=== PATIENT | male | born 1935 | race Caucasian/White ===

== ENCOUNTER 2024-05-20 11:06 | Inpatient (IN) ==
[2024-05-20] MEDS ORDERED: IOPAMIDOL 100 ML BOTTLE IV ONE (11:07)
[2024-05-20] MEDS: IPRATROPIUM/ALBUTEROL 3 ML AMPUL.NEB NEB ONE (11:15)
[2024-05-20] MEDS: 0.9 % SODIUM CHLORIDE 1,000 ML IV ONE (11:21)
[2024-05-20] MEDS: ACETAMINOPHEN 1,000 MG/100 ML BAG IV ONE (11:21)
[2024-05-20] MEDS: AZITHROMYCIN 500 MG in DEXTROSE 5% IN WATER 250 ML IV ONE (11:44)
[2024-05-20 12:05] LABS: Blood Urea Nitrogen 16 mg/dL (8-23); Calcium 8.7 mg/dL (8.6-10.4); Carbon Dioxide 21 mmol/L (22-30); Chloride 100 mmol/L (96-108); Glomerular Filtration Rate 54; Glucose 159 mg/dL (70-105); Sodium 136 mmol/L (133-145)
[2024-05-20 13:22] LABS: ABG Methemoglobin 0.2 % (0.4-1.5); Total Hemoglobin 14.9 gm/Dl (13.5-16.5); VBG Base Excess -3 (-2-3); VBG HCO3 19.6 mmol/L (24.0-28.0); VBG Oxygen Saturation 92.7 % (40.0-70.0); VBG PH 7.43 U (7.32-7.42); VBG PO2 147.4 mmHg (25.0-40.0); VBG Total CO2 20.6 mmol/L (25.0-29.0)
[2024-05-20 13:48] LABS: Basophils # (Auto) 0.02 K/mcL (0.00-0.30); Basophils % (Auto) 0.2 % (0.0-2.0); Eosinophils # (Auto) 0 K/mcL (0.00-0.70); Eosinophils % (Auto) 0 % (0.0-7.0); Hematocrit 46.6 % (40.1-51.0); Hemoglobin 15.5 g/dL (13.7-17.5); Lymphocytes # (Auto) 1.79 K/mcL (1.50-4.80); Lymphocytes % (Auto) 14.6 % (15.5-49.0); Mean Cell Volume 96.1 fL (80.0-100.0); Mean Corpuscular HGB Conc 33.3 g/dL (31.0-36.0); Mean Platelet Volume 10.5 fL (8.8-12.5); Monocytes # (Auto) 1.04 K/mcL (0.10-0.90); Monocytes % (Auto) 8.5 % (1.0-12.0); Neutrophils % (Auto) 76.5 % (38.0-78.0); Platelet Count 178 K/mcL (140-440); RBC 4.85 M/mcL (4.63-6.08); Red Cell Distribution Width 12.3 % (11.5-14.5); WBC 12.2 K/mcL (4.5-11.0)
[2024-05-20 17:35] LABS: C-Reactive Protein 2.16 mg/dL (0.03-0.80)
[2024-05-20] MEDS: 0.9 % SODIUM CHLORIDE 10 ML SYRINGE IV SCH ×3 (20:10→22:03)
[2024-05-20] MEDS: ENOXAPARIN 100 MG/ML SYRINGE SQ SCH (20:19)
[2024-05-20] MEDS ORDERED: LORazepam 2 MG/ML VIAL IV PRN (21:11)
[2024-05-20] MEDS ORDERED: ONDANSETRON 4 MG/2 ML VIAL IV PRN (21:11)
[2024-05-20] MEDS ORDERED: POLYETHYLENE GLYCOL 3350 17 GM PACKET PO PRN (21:11)
[2024-05-20] MEDS: IPRATROPIUM/ALBUTEROL 3 ML AMPUL.NEB NEB SCH (21:39)
[2024-05-20] MEDS: FUROSEMIDE 40 MG/4 ML VIAL IV ONE (21:58)
[2024-05-20] MEDS: DOXYCYCLINE 100 MG in DEXTROSE 5% IN WATER 100 ML IV SCH (22:02)
[2024-05-20] MEDS: THIAMINE 200 MG in 0.9 % SODIUM CHLORIDE 50 ML IV ONE (23:05)
[2024-05-21 01:00] LABS: Alcohol, Urine None Detected; Amphetamine Screen,Urine None detected; Barbiturate Screen,Urine None detected; Benzodiazepines Screen,Urine None detected; Cannabinoid Screen,Urine None detected; Cocaine Screen,Urine None detected; Fentanyl, Urine Screen None Detected; Opiate Screen,Urine None detected; Oxycodone, Urine Screen None detected; Phencyclidine Screen,Urine None detected
[2024-05-21 06:42] LABS: Basophils # (Auto) 0.02 K/mcL (0.00-0.30); Basophils % (Auto) 0.2 % (0.0-2.0); Eosinophils # (Auto) 0 K/mcL (0.00-0.70); Eosinophils % (Auto) 0 % (0.0-7.0); Hematocrit 39.7 % (40.1-51.0); Hemoglobin 13.6 g/dL (13.7-17.5); Lymphocytes % (Auto) 14.1 % (15.5-49.0); Mean Cell Volume 94.7 fL (80.0-100.0); Mean Corpuscular HGB Conc 34.3 g/dL (31.0-36.0); Mean Platelet Volume 10.2 fL (8.8-12.5); Monocytes # (Auto) 0.99 K/mcL (0.10-0.90); Monocytes % (Auto) 8.7 % (1.0-12.0); Neutrophils % (Auto) 76.9 % (38.0-78.0); Platelet Count 141 K/mcL (140-440); RBC 4.19 M/mcL (4.63-6.08); Red Cell Distribution Width 12.4 % (11.5-14.5); WBC 11.3 K/mcL (4.5-11.0)
[2024-05-21 07:03] LABS: ALT/SGPT 12 U/L (<40); AST/SGOT 25 U/L (<40); Albumin 3.6 gm/dL (3.2-5.2); Albumin/Globulin Ratio 1.4 (1.0-2.3); Alkaline Phosphatase 48 U/L (39-117); Bilirubin,Direct 0.2 mg/dL (<0.3); Bilirubin,Total 0.6 mg/dL (0.1-1.0); Blood Urea Nitrogen 19 mg/dL (8-23); Calcium 8.5 mg/dL (8.6-10.4); Carbon Dioxide 25 mmol/L (22-30); Chloride 102 mmol/L (96-108); Globulin 2.5 gm/dL (2.2-3.7); Glomerular Filtration Rate 49; Glucose 128 mg/dL (70-105); Lactate Dehydrogenase 184 U/L (135-225); Phosphorous 2.8 mg/dL (2.5-4.5); Potassium 3.4 mmol/L (3.3-5.1); Sodium 140 mmol/L (133-145); Triglycerides 91 mg/dL (<150); Uric Acid 6.1 mg/dL (2.5-8.0)
[2024-05-21] MEDS: LISINOPRIL 10 MG TABLET PO SCH (08:14)
[2024-05-21] MEDS: VITAMIN D3 25 MCG TABLET PO SCH (08:15)
[2024-05-21] MEDS: FINASTERIDE 5 MG TABLET PO SCH (08:15)
[2024-05-21] MEDS: amLODIPine 10 MG TABLET PO SCH (08:15)
[2024-05-21] MEDS: ASPIRIN 81 MG TAB.CHEW PO SCH (08:15)
[2024-05-21] MEDS ORDERED: cefTRIAXone 1 GM VIAL IV SCH (09:00)
[2024-05-21] MEDS ORDERED: COENZYME Q10 100 MG PO SCH (09:00)
[2024-05-21] MEDS: cefTRIAXone 2 GM in DEXTROSE 5% IN WATER 50 ML IV SCH (09:46)
[2024-05-21] MEDS: LACTATED RINGERS 1,000 ML IV SCH ×2 (11:22→12:29)
[2024-05-21] MEDS: THIAMINE 100 MG in 0.9 % SODIUM CHLORIDE 50 ML IV SCH (11:22)
[2024-05-21] MEDS: POTASSIUM CHLORIDE 20 MEQ PACKET PO ONE (11:34)
[2024-05-21] MEDS: IPRATROPIUM/ALBUTEROL 3 ML AMPUL.NEB NEB SCH (19:03)
[2024-05-21] MEDS: ACETAMINOPHEN 325 MG TABLET PO PRN (19:35)
[2024-05-21] MEDS: IPRATROPIUM/ALBUTEROL 3 ML AMPUL.NEB NEB ONE (20:09)
[2024-05-21] MEDS: SENNOSIDES 1 TABLET PO PRN (20:34)
[2024-05-21] MEDS: ATORVASTATIN 40 MG TABLET PO SCH (20:34)
[2024-05-22 06:31] LABS: Basophils # (Auto) 0.02 K/mcL (0.00-0.30); Basophils % (Auto) 0.2 % (0.0-2.0); Eosinophils # (Auto) 0.08 K/mcL (0.00-0.70); Eosinophils % (Auto) 0.8 % (0.0-7.0); Hematocrit 39.7 % (40.1-51.0); Hemoglobin 13.7 g/dL (13.7-17.5); Lymphocytes # (Auto) 1.04 K/mcL (1.50-4.80); Lymphocytes % (Auto) 10.7 % (15.5-49.0); Mean Cell Volume 93.9 fL (80.0-100.0); Mean Corpuscular HGB Conc 34.5 g/dL (31.0-36.0); Mean Platelet Volume 10.5 fL (8.8-12.5); Monocytes # (Auto) 0.71 K/mcL (0.10-0.90); Monocytes % (Auto) 7.3 % (1.0-12.0); Neutrophils % (Auto) 80.7 % (38.0-78.0); Platelet Count 146 K/mcL (140-440); RBC 4.23 M/mcL (4.63-6.08); WBC 9.8 K/mcL (4.5-11.0)
[2024-05-22 06:49] LABS: ALT/SGPT 18 U/L (<40); AST/SGOT 32 U/L (<40); Albumin 3.4 gm/dL (3.2-5.2); Albumin/Globulin Ratio 1.3 (1.0-2.3); Alkaline Phosphatase 52 U/L (39-117); Bilirubin,Direct 0.3 mg/dL (<0.3); Bilirubin,Total 0.8 mg/dL (0.1-1.0); Blood Urea Nitrogen 17 mg/dL (8-23); Calcium 8.7 mg/dL (8.6-10.4); Carbon Dioxide 25 mmol/L (22-30); Chloride 101 mmol/L (96-108); Globulin 2.7 gm/dL (2.2-3.7); Glomerular Filtration Rate 67; Glucose 130 mg/dL (70-105); Lactate Dehydrogenase 203 U/L (135-225); Potassium 3.6 mmol/L (3.3-5.1); Sodium 137 mmol/L (133-145); Triglycerides 110 mg/dL (<150); Uric Acid 5.3 mg/dL (2.5-8.0)
[2024-05-22] MEDS: IPRATROPIUM/ALBUTEROL 3 ML AMPUL.NEB NEB PRN (08:15)
[2024-05-22] MEDS: FUROSEMIDE 20 MG/2 ML VIAL IV ONE (11:52)
[2024-05-22] MEDS: BENZOCAINE/MENTHOL 1 LOZENGE PO PRN (20:36)
[2024-05-23 06:51] LABS: ALT/SGPT 37 U/L (<40); AST/SGOT 47 U/L (<40); Albumin 3.3 gm/dL (3.2-5.2); Albumin/Globulin Ratio 1.2 (1.0-2.3); Alkaline Phosphatase 52 U/L (39-117); Bilirubin,Direct < 0.2 mg/dL (0-0.3); Bilirubin,Total 0.6 mg/dL (0.1-1.0); Blood Urea Nitrogen 20 mg/dL (8-23); Calcium 8.9 mg/dL (8.6-10.4); Carbon Dioxide 23 mmol/L (22-30); Chloride 101 mmol/L (96-108); Globulin 2.7 gm/dL (2.2-3.7); Glomerular Filtration Rate 76; Glucose 139 mg/dL (70-105); Lactate Dehydrogenase 211 U/L (135-225); Phosphorous 2.8 mg/dL (2.5-4.5); Potassium 3.5 mmol/L (3.3-5.1); Sodium 136 mmol/L (133-145); Triglycerides 111 mg/dL (<150); Uric Acid 5.4 mg/dL (2.5-8.0)
== END 2024-05-23 11:25 | disposition home or self-care (01) | DRG 175 ==
LOC: ED 11:06 → ICU 19:39
PROVIDERS: ADMIT Student in an Organized Health Care Education/Training Program; ATTEND Internal Medicine